=== PATIENT | male | born 1995 | race Asian ===

== ENCOUNTER 2020-12-02 04:26 | Emergency (ER) | payer BC, SELFPAY ==
[~2020-12-02] VITALS: Ht 177.8 cm; Wt 83.9 kg
[2020-12-02 04:26] VITALS: BP_SYST 131
[2020-12-02] MEDS ORDERED: POTASSIUM CHLORIDE 10 MEQ in NACL 0.9% 1,000 ML IV SCH (04:30)
[2020-12-02] MEDS ORDERED: NACL 0.9% 1,000 ML IV ONE (04:30)
[2020-12-02] MEDS ORDERED: ONDANSETRON HCL 4 MG/2 ML VIAL IVP ONE (04:30)
[2020-12-02] MEDS ORDERED: KCL 10 mEq in 50 mL (PREMIX) 50 ML IV ONE (04:52)
[2020-12-02 05:05] LABS: HEMOGLOBIN 13.6 g/dL (14.0-18.0); MONOCYTES # (AUTO) 0.6 K/uL (0.0-1.0)
[2020-12-02 05:09] LABS: LYMPHOCYTES # (AUTO) 0.2 K/uL (1.0-5.5); LYMPHOCYTES % (AUTO) 1.5 % (20.5-51.5); NEUTROPHILS # (AUTO) 15.5 K/uL (1.8-7.7); RED CELL DISTRIBUTION WIDTH 13.5 % (9.0-15.0); WHITE BLOOD COUNT (AUTO) 16.4 K/uL (4.8-10.8)
[2020-12-02 05:12] LABS: CALCIUM 8.9 mg/dL (8.4-11.0); CREATININE 1.5 mg/dL (0.55-1.30); POTASSIUM 4.1 mmol/L (3.5-5.1)
[2020-12-02 05:17] LABS: BASOPHILS % (AUTO) 0.2 % (0.0-2.0); EOSINOPHILS % (AUTO) 0.1 % (0.0-4.0); MEAN CORPUSCULAR HEMOGLOBIN 28 pg (27-31); MEAN CORPUSCULAR HGB CONC 33 % (32-36); MEAN CORPUSCULAR VOLUME 84 fL (79.0-98.0); MONOCYTES % (AUTO) 3.7 % (1.7-9.3); NEUTROPHILS % (AUTO) 94.5 % (40.0-70.0); PLATELET COUNT (AUTO) 259 K/uL (130-430)
[2020-12-02 05:18] LABS: ALBUMIN 4.3 g/dL (3.4-4.8); TOTAL BILIRUBIN 1.1 mg/dL (0.0-1.0)
[2020-12-02] MEDS ORDERED: ONDA4TAB5 PO (05:48)
[2020-12-02 06:02] VITALS: BP_SYST 122
== END 2020-12-02 06:20 | disposition home or self-care (01) ==
LOC: SED 04:26
DX: A05.9 Bacterial foodborne intoxication, unspecified (principal); Z79.899 Other long term (current) drug therapy
CPT/HCPCS: 36415; 80053; 85025; 96361; 96374; 99283; J2405; J3480; J7030